=== PATIENT | male | born 1960 | race Caucasian/White ===

== ENCOUNTER 2019-01-15 10:09 | Inpatient (IN) ==
--- NOTE | 2019-01-15 10:50 | Emergency Department Note ---
Disposition Clinical Impression: Atrial fibrillation with rapid ventricular response Right lower lobe pneumonia Qualifiers: Pneumonia type: due to unspecified organism Qualified Code(s): J18.1 - Lobar pneumonia, unspecified organism Disposition: Admitted As Inpatient Condition: Fair Referrals: Edna Antonio, [employer] [Primary Care Provider] - Forms: ED Satisfaction Letter, Work/School Release Time of Disposition: 13:23 General Adult HPI - General Chief complaint: ED General Medical Stated complaint: leg swelling, out of medication Time Seen by Provider: 01/15/19 10:32 Source: patient, family Mode of arrival: private vehicle Limitations: other (Intoxication) Nursing Notes Reviewed: Yes Vital Signs Reviewed: Yes - History of Present Illness HPI Narrative: Patient is an extremely poor historian. His most common answer is "you have to ask my daughter". Patient says he feels short of breath with this been going on for months. He says his legs up and swollen for a few days. He says he has not had his medicines for about 3 days. He has been coughing. When I speak to his daughter turns out he has not had his medicines for months. He is been drinking nonstop for the past several days. She corroborates the swelling of the legs. Patient does seem intoxicated. Really cannot get much of a history or review of systems from him. Pt Subjective Complaint: Swollen legs, short of breath Pain Scale: 0 - Related Data Home Medications Medication Instructions Recorded Confirmed Loratadine [Claritin] 10 mg PO DAILY 01/15/19 01/15/19 Metoprolol XL (24 HR) Succ [Toprol 50 mg PO BID 01/15/19 01/15/19 Xl] Allergies Allergy/AdvReac Type Severity Reaction Status Date / Time No Known Allergies Allergy Verified 01/20/17 14:36 All systems ED: reviewed and negative except as stated. Constitutional: Denies: fever Cardiovascular: Reports: edema. Denies: chest pain Respiratory: Reports: cough, dyspnea Gastrointestinal: Denies: abdominal pain, vomiting, diarrhea Musculoskeletal: Denies: back pain Neurological: Denies: headache Past Medical History - Past Medical History Source: old records reviewed, obtained from family, nursing notes reviewed Medical history: Reports: arthritis, atrial fibrillation, CHF, hypertension Surgical history: Reports: no surgical history Psychiatric history: Reports: no psych history - Social History Smoking Status: Current every day smoker Smokeless Tobacco Status: No Alcohol use: Reports: heavy Drug use: Reports: none Physical Exam - General Limitations: no limitations General appearance: alert, appears intoxicated - Head Head exam: atraumatic, normocephalic, normal inspection - Eye Eye exam: Present: normal appearance, PERRL, EOMI. Absent: scleral icterus, conjunctival injection - ENT ENT exam: normal exam, normal oropharynx, mucous membranes moist, normal external ear exam - Neck Neck exam: Present: normal inspection, full ROM, trachea midline - Chest Chest inspection: Present: normal inspection, symmetric chest wall rise. Absent: tenderness - Respiratory Respiratory exam: Present: normal lung sounds bilaterally, other (Course breath sounds, frequent cough). Absent: respiratory distress - Cardiovascular Cardiovascular exam: Present: tachycardia, irregular rhythm. Absent: systolic murmur, diastolic murmur - Abdominal Exam Abdominal exam: Present: soft, Non-Tender, normal bowel sounds - Extremities Exam Extremities exam: Present: full ROM, pedal edema - Neurological Exam Neurological exam: Present: alert. Absent: motor sensory deficit - Skin Skin exam: Present: warm, dry. Absent: rash Course Course Narrative: Patient presents as an extremely poor historian listing multiple chief complaints of basically uncertain chronicity. His story totally contradicts his daughter story. She seems much more reliable than he. Seems like the patient is not vomiting his medicines for quite some time and since her on drinks all day. In my workup I see that he is in atrial fibrillation with rapid ventricular response at a rate of 162. He has peripheral edema in his lower legs. He coughs and has some coarse breath sounds. This could all be congestive heart failure related to the A. fib or he could have a pneumonia as the trigger. He will need an extensive workup. I am going to start him on Cardizem to start in that heart rate controlled. Neither the patient nor the daughter think he is ever been on a blood thinner. This despite his atrial fibrillation. This might be because he is an alcoholic and they are afraid to fall down a bleed in his head. I am not sure whether I will be starting anticoagulation at this time. I will dig it through old records trying to little bit more insight. - Reevaluation(s) Reevaluation #1: A shows labs look pretty good. He has a pneumonia on his chest x-ray. He has atrial fibrillation with rapid ventricular response but his rate is 97 beats per minute at this time on a 7.5 mg per hour drip of Cardizem that we have not adjusted for 2 hours. He is in no respiratory distress. Pulse ox is 99%. Blood pressure is a bit hypertensive, consistent with his baseline. However he spoke with the hospitalist and he is accepting the patient for admission to the hospital. Time: 13:22 - Consultations Consultation #1: Dr. Haywood, hospitalist - I discussed the case with the hospitalist. We discussed the Cardizem drip and the diagnoses of the pneumonia. He has accepted the patient for admission to the hospital. Time: 13:21 Vital Signs Temperature 98.7 F 01/15/19 10:19 Pulse Rate 161 01/15/19 10:19 Respiratory Rate 24 01/15/19 10:19 Blood Pressure 157/108 01/15/19 10:19 O2 Sat by Pulse Oximetry 95 01/15/19 10:19 Temperature 98.7 F 01/15/19 10:19 Pulse Rate 115 01/15/19 13:12 Respiratory Rate 22 01/15/19 13:12 Blood Pressure 144/109 01/15/19 13:12 O2 Sat by Pulse Oximetry 95 01/15/19 13:12 Oxygen Delivery Oxygen Delivery Nasal Cannula Medical Decision Making - Medical Records Medical records reviewed: Yes I reviewed the patient's medical records. - Lab Data Lab results reviewed: Yes I reviewed the patient's lab results. Result diagrams: 01/15/19 10:52 01/15/19 10:52 Lab Results 01/15/19 01/15/19 01/15/19 Range/Units 10:52 10:52 10:52 WBC 8.8 (4.3-11.1) K/mcL RBC 4.26 (4.19-5.50) M/mcL Hgb 14.4 (12.9-16.9) g/dL Hct 43.0 (37.5-50.1) % MCV 100.9 H (83.0-100.0) fL MCH 33.8 H (28.0-33.3) pg MCHC 33.5 (31.6-35.5) g/dL RDW 13.8 (11.5-14.5) % Plt Count 111 L (140-400) K/mcL MPV 9.7 (9.4-12.4) fL Immature Gran % 0.3 (0-4) % Seg Neutrophils % 73.4 % Lymphocytes % 20.7 % Monocytes % 4.6 % Eosinophils % 0.3 % Basophils % 0.7 % Neutrophils # 6.5 (1.6-8.9) K/mcL Lymphocytes # 1.8 (0.6-4.6) K/mcL Monocytes # 0.4 (0.0-1.3) K/mcL Eosinophils # 0.0 (0.0-0.6) K/mcL Basophils # 0.1 (0.0-0.2) K/mcL PT 12.8 H (9.4-12.1) Seconds INR 1.1 APTT 34.9 (26.0-36.0) Seconds Sodium 135 L (136-145) mEq/L Potassium 5.0 (3.5-5.1) mEq/L Chloride 103 (98-107) mEq/L Carbon Dioxide 20 L (23-29) mEq/L BUN 10 (8-23) mg/dL Creatinine 0.83 (0.70-1.30) mg/dL Est GFR ( Amer) > 60 (> 60) Est GFR (Non-Af Amer) > 60 (> 60) BUN/Creatinine Ratio 12 (6-26) Glucose 93 (70-105) mg/dL Calculated Osmolality 279 L (280-300) Lactic Acid (0.5-2.2) mmol/L Calcium 8.9 (8.6-10.3) mg/dL Total Bilirubin 0.6 (0.3-1.0) mg/dL Direct Bilirubin 0.2 (0.0-0.2) mg/dL Indirect Bilirubin 0.4 (0.0-1.2) mg/dL AST 19 (13-39) Units/L ALT 13 (7-52) Units/L Alkaline Phosphatase 69 (34-104) Units/L Troponin I 0.03 (< 0.04) ng/mL B-Natriuretic Peptide (Less than 100) pg/mL Serum Total Protein 6.8 (6.4-8.9) g/dL Albumin 3.9 (3.5-5.7) g/dL Globulin 2.9 (2.4-3.5) g/dL Albumin/Globulin Ratio 1.3 (1.1-2.2) Lipase 46 (11-82) Units/L Urine Color (Yellow) Urine Clarity (Clear) Urine pH (5.0-8.0) pH Units Ur Specific [place] (1.010-1.025) Urine Protein (Neg-Trace) mg/dL Urine Glucose (UA) (Normal) mg/dL Urine Ketones (Negative) mg/dL Urine Blood (Negative) Urine Nitrite (Negative) Urine Bilirubin (Negative) Urine Urobilinogen (Normal) mg/dL Ur Leukocyte Esterase (Negative) Urine Microscopic RBC (0-3) per hpf Urine Microscopic WBC (0-3) per hpf Ur Squamous Epith Cells (None-Few) per lpf Urine Bacteria (None-Few) per hpf Urine Mucus (Few) Ur Culture Indicated? (NO) Urine Opiates Screen (Twtrcu=319) ng/mL Ur Oxycodone Screen (Cutoff= 100) ng/mL Ur Barbiturates Screen (Edkegs=660) ng/mL Ur Phencyclidine Scrn (Cutoff=25) ng/mL Ur Amphetamines Screen (Ypxkhs=5161) ng/mL U Benzodiazepines Scrn (Mlvtmx=232) ng/mL Urine Cocaine Screen (Cutoff= 300) ng/mL U Marijuana (THC) Screen (Cutoff = 50) ng/mL Ur Drug Screen Interp Ethyl Alcohol 101 H (Less than 10) mg/dL 01/15/19 01/15/19 01/15/19 Range/Units 10:52 10:52 11:01 WBC (4.3-11.1) K/mcL RBC (4.19-5.50) M/mcL Hgb (12.9-16.9) g/dL Hct (37.5-50.1) % MCV (83.0-100.0) fL MCH (28.0-33.3) pg MCHC (31.6-35.5) g/dL RDW (11.5-14.5) % Plt Count (140-400) K/mcL MPV (9.4-12.4) fL Immature Gran % (0-4) % Seg Neutrophils % % Lymphocytes % % Monocytes % % Eosinophils % % Basophils % % Neutrophils # (1.6-8.9) K/mcL Lymphocytes # (0.6-4.6) K/mcL Monocytes # (0.0-1.3) K/mcL Eosinophils # (0.0-0.6) K/mcL Basophils # (0.0-0.2) K/mcL PT (9.4-12.1) Seconds INR APTT (26.0-36.0) Seconds Sodium (136-145) mEq/L Potassium (3.5-5.1) mEq/L Chloride (98-107) mEq/L Carbon Dioxide (23-29) mEq/L BUN (8-23) mg/dL Creatinine (0.70-1.30) mg/dL Est GFR ( Amer) (> 60) Est GFR (Non-Af Amer) (> 60) BUN/Creatinine Ratio (6-26) Glucose (70-105) mg/dL Calculated Osmolality (280-300) Lactic Acid 1.5 (0.5-2.2) mmol/L Calcium (8.6-10.3) mg/dL Total Bilirubin (0.3-1.0) mg/dL Direct Bilirubin (0.0-0.2) mg/dL Indirect Bilirubin (0.0-1.2) mg/dL AST (13-39) Units/L ALT (7-52) Units/L Alkaline Phosphatase (34-104) Units/L Troponin I (< 0.04) ng/mL B-Natriuretic Peptide 459 H (Less than 100) pg/mL Serum Total Protein (6.4-8.9) g/dL Albumin (3.5-5.7) g/dL Globulin (2.4-3.5) g/dL Albumin/Globulin Ratio (1.1-2.2) Lipase (11-82) Units/L Urine Color Yellow (Yellow) Urine Clarity Turbid A (Clear) Urine pH 5.0 (5.0-8.0) pH Units Ur Specific [place] 1.015 (1.010-1.025) Urine Protein 100 H (Neg-Trace) mg/dL Urine Glucose (UA) Normal (Normal) mg/dL Urine Ketones Negative (Negative) mg/dL Urine Blood Large H (Negative) Urine Nitrite Positive A (Negative) Urine Bilirubin Negative (Negative) Urine Urobilinogen Normal (Normal) mg/dL Ur Leukocyte Esterase Large H (Negative) Urine Microscopic RBC 3-5 H (0-3) per hpf Urine Microscopic WBC TNTC H (0-3) per hpf Ur Squamous Epith Cells Few (None-Few) per lpf Urine Bacteria Moderate H (None-Few) per hpf Urine Mucus Few (Few) Ur Culture Indicated? YES A (NO) Urine Opiates Screen (Uowraw=792) ng/mL Ur Oxycodone Screen (Cutoff= 100) ng/mL Ur Barbiturates Screen (Faixfc=201) ng/mL Ur Phencyclidine Scrn (Cutoff=25) ng/mL Ur Amphetamines Screen (Smunhs=0087) ng/mL U Benzodiazepines Scrn (Fxbtsk=593) ng/mL Urine Cocaine Screen (Cutoff= 300) ng/mL U Marijuana (THC) Screen (Cutoff = 50) ng/mL Ur Drug Screen Interp Ethyl Alcohol (Less than 10) mg/dL 01/15/19 Range/Units 11:01 WBC (4.3-11.1) K/mcL RBC (4.19-5.50) M/mcL Hgb (12.9-16.9) g/dL Hct (37.5-50.1) % MCV (83.0-100.0) fL MCH (28.0-33.3) pg MCHC (31.6-35.5) g/dL RDW (11.5-14.5) % Plt Count (140-400) K/mcL MPV (9.4-12.4) fL Immature Gran % (0-4) % Seg Neutrophils % % Lymphocytes % % Monocytes % % Eosinophils % % Basophils % % Neutrophils # (1.6-8.9) K/mcL Lymphocytes # (0.6-4.6) K/mcL Monocytes # (0.0-1.3) K/mcL Eosinophils # (0.0-0.6) K/mcL Basophils # (0.0-0.2) K/mcL PT (9.4-12.1) Seconds INR APTT (26.0-36.0) Seconds Sodium (136-145) mEq/L Potassium (3.5-5.1) mEq/L Chloride (98-107) mEq/L Carbon Dioxide (23-29) mEq/L BUN (8-23) mg/dL Creatinine (0.70-1.30) mg/dL Est GFR ( Amer) (> 60) Est GFR (Non-Af Amer) (> 60) BUN/Creatinine Ratio (6-26) Glucose (70-105) mg/dL Calculated Osmolality (280-300) Lactic Acid (0.5-2.2) mmol/L Calcium (8.6-10.3) mg/dL Total Bilirubin (0.3-1.0) mg/dL Direct Bilirubin (0.0-0.2) mg/dL Indirect Bilirubin (0.0-1.2) mg/dL AST (13-39) Units/L ALT (7-52) Units/L Alkaline Phosphatase (34-104) Units/L Troponin I (< 0.04) ng/mL B-Natriuretic Peptide (Less than 100) pg/mL Serum Total Protein (6.4-8.9) g/dL Albumin (3.5-5.7) g/dL Globulin (2.4-3.5) g/dL Albumin/Globulin Ratio (1.1-2.2) Lipase (11-82) Units/L Urine Color (Yellow) Urine Clarity (Clear) Urine pH (5.0-8.0) pH Units Ur Specific [place] (1.010-1.025) Urine Protein (Neg-Trace) mg/dL Urine Glucose (UA) (Normal) mg/dL Urine Ketones (Negative) mg/dL Urine Blood (Negative) Urine Nitrite (Negative) Urine Bilirubin (Negative) Urine Urobilinogen (Normal) mg/dL Ur Leukocyte Esterase (Negative) Urine Microscopic RBC (0-3) per hpf Urine Microscopic WBC (0-3) per hpf Ur Squamous Epith Cells (None-Few) per lpf Urine Bacteria (None-Few) per hpf Urine Mucus (Few) Ur Culture Indicated? (NO) Urine Opiates Screen Negative (Zclmzb=139) ng/mL Ur Oxycodone Screen Negative (Cutoff= 100) ng/mL Ur Barbiturates Screen Negative (Anlkqe=451) ng/mL Ur Phencyclidine Scrn Negative (Cutoff=25) ng/mL Ur Amphetamines Screen Negative (Mhlxaf=4051) ng/mL U Benzodiazepines Scrn Negative (Sgbjdn=924) ng/mL Urine Cocaine Screen Negative (Cutoff= 300) ng/mL U Marijuana (THC) Screen Negative (Cutoff = 50) ng/mL Ur Drug Screen Interp See Below Ethyl Alcohol (Less than 10) mg/dL - Radiology Data Radiology results reviewed: Yes I reviewed the patient's radiology results. - EKG Data EKG #1 EKG attestation: Yes I reviewed and interpreted this EKG. EKG results narrative: Twelve-lead EKG performed at 10:17 AM. Ordered, reviewed and interpreted by ED physician shows atrial fibrillation at a rate of 158. Right axis deviation. Reasonable R wave progression across the precordium. No obvious acute ischemic changes.
[2019-01-15] MEDS ORDERED: 0.9 % Sodium Chloride 1,000 ML IVC ONE (11:02)
[2019-01-15 11:04] LABS: Basophils # 0.1 K/mcL (0.0-0.2); Basophils % 0.7 %; Eosinophils % 0.3 %; Hemoglobin 14.4 g/dL (12.9-16.9); Immature Granulocytes % 0.3 % (0-4); Lymphocytes # 1.8 K/mcL (0.6-4.6); Lymphocytes % 20.7 %; Mean Corpuscular HGB Conc 33.5 g/dL (31.6-35.5); Mean Corpuscular Hemoglobin 33.8 pg (28.0-33.3); Mean Corpuscular Volume 100.9 fL (83.0-100.0); Mean Platelet Volume 9.7 fL (9.4-12.4); Monocytes # 0.4 K/mcL (0.0-1.3); Monocytes % 4.6 %; Neutrophils # 6.5 K/mcL (1.6-8.9); Platelet Count 111 K/mcL (140-400); Red Blood Count 4.26 M/mcL (4.19-5.50); Red Cell Distribution Width 13.8 % (11.5-14.5); Segmented Neutrophils % 73.4 %
[2019-01-15] MEDS ORDERED: Azithromycin 500 MG in D5% in Water 250 ML IVPB ONE (11:04)
[2019-01-15 11:17] LABS: INR 1.1; Prothrombin Time 12.8 Seconds (9.4-12.1)
[2019-01-15 11:18] LABS: Bilirubin,Urine Negative (Negative); Blood,Urine Large (Negative); Clarity,Urine Turbid (Clear); Color,Urine Yellow (Yellow); Glucose,Urine (UA) Normal (Normal); Ketones,Urine Negative (Negative); Leukocyte Esterase,Urine Large (Negative); Nitrite,Urine Positive (Negative); Protein,Urine 100 mg/dL (Neg-Trace); Specific Gravity,Urine 1.015 (1.010-1.025); Urobilinogen,Urine Normal (Normal)
[2019-01-15 11:19] LABS: Amphetamine Screen,Urine Negative ng/mL (Cutoff=1000); Barbiturate Screen,Urine Negative ng/mL (Cutoff=200); Benzodiazepines Screen,Urine Negative ng/mL (Cutoff=200); Cannabinoid Screen,Urine Negative ng/mL (Cutoff = 50); Cocaine Screen,Urine Negative ng/mL (Cutoff= 300); Opiate Screen,Urine Negative ng/mL (Cutoff=300); Phencyclidine Screen,Urine Negative ng/mL (Cutoff=25)
[2019-01-15 11:20] LABS: Activated Partial Thrombo Time 34.9 Seconds (26.0-36.0)
[2019-01-15 11:27] LABS: Troponin I 0.03 ng/mL (< 0.04)
[2019-01-15 11:30] LABS: Squamous Epithelial Cell,Urine Few per lpf (None-Few); WBC,Urine TNTC per hpf (0-3)
[2019-01-15 11:31] LABS: Bacteria,Urine Moderate per hpf (None-Few); Mucus,Urine Few (Few)
[2019-01-15 12:06] LABS: Alanine Aminotransferase 13 Units/L (7-52); Albumin 3.9 g/dL (3.5-5.7); Albumin/Globulin Ratio 1.3 (1.1-2.2); Alkaline Phosphatase 69 Units/L (34-104); Aspartate Amino Transferase 19 Units/L (13-39); BUN/Creatinine Ratio 12 (6-26); Bilirubin,Direct 0.2 mg/dL (0.0-0.2); Bilirubin,Indirect 0.4 mg/dL (0.0-1.2); Bilirubin,Total 0.6 mg/dL (0.3-1.0); Blood Urea Nitrogen 10 mg/dL (8-23); Calcium 8.9 mg/dL (8.6-10.3); Carbon Dioxide 20 mEq/L (23-29); Chloride 103 mEq/L (98-107); Ethanol 101 mg/dL (Less than 10); Globulin 2.9 g/dL (2.4-3.5); Glucose 93 mg/dL (70-105); Lipase 46 Units/L (11-82); Osmolality,Calculated 279 (280-300); Sodium 135 mEq/L (136-145); Total Protein 6.8 g/dL (6.4-8.9); eGFR For Non-African Americans > 60 (> 60)
[2019-01-15] MEDS ORDERED: *HR* Rivaroxaban 10 MG TABLET PO STA ×2 (13:28→14:05)
[2019-01-15] MEDS ORDERED: 0.9 % Sodium Chloride 1,000 ML IVC SCH (14:05)
[2019-01-15] MEDS ORDERED: Naloxone 0.4 MG/ML INJ IVP PRN (14:05)
[2019-01-15] MEDS ORDERED: *HR* LORazepam 2 MG/ML VIAL IVP STA ×2 (14:10→14:16)
[2019-01-15] MEDS: Azithromycin 500 MG in D5% in Water 250 ML IVPB SCH (15:00)
[2019-01-15] MEDS ORDERED: Ipratropium/Albuterol Neb 3 ML IH SCH (16:00)
[2019-01-15] MEDS ORDERED: *HR* Digoxin 0.5 MG/2 ML AMPUL IVP ONE (16:26)
--- NOTE | 2019-01-15 16:32 | Internal Med History&Physical ---
Date of Encounter: 01/15/19 Time of Encounter: 16:05 Assessment and Plan (1) Atrial fibrillation with rapid ventricular response Current visit: Yes Status: Acute He has been started on Cardizem drip in emergency room. He will receive IV Lanoxin and metoprolol. Further workup/treatment will be done as needed. (2) Congestive heart failure Current visit: No Status: Chronic BN peptide has been elevated on all labs since April 2016. Echocardiogram 01/22/2017 showed LVEF 40% with indeterminate diastolic function due to atrial fibrillation. There was [id number] tricuspid regurgitation. The estimated RVSP was slightly elevated at 41 mmHg. The interventricular septum and posterior wall thickness measurements were normal at 1.10 each. There was LAE at 4.80 cm. He will be given IV Lasix, IV metoprolol, and IV Lanoxin. Qualifiers: Qualified Code(s): I50.43 - Acute on chronic combined systolic (congestive) and diastolic (congestive) heart failure (3) Right lower lobe pneumonia Current visit: Yes Status: Acute IV Rocephin and Zithromax were started in emergency room. I will change from Rocephin to Zosyn to better cover for possible aspiration due to binge drinking Qualifiers: Pneumonia type: due to unspecified organism Qualified Code(s): J18.1 - Lobar pneumonia, unspecified organism (4) UTI (urinary tract infection) Current visit: Yes Status: Acute Rocephin and Zithromax were given inemergency room. Change to Zosyn from Rocephin. Urine culture has been sent. Add lactobacillus. Qualifiers: Urinary tract infection type: site unspecified Hematuria presence: with hematuria Qualified Code(s): N39.0 - Urinary tract infection, site not specified; R31.9 - Hematuria, unspecified (5) Alcohol abuse Current visit: No Status: Acute IV thiamine has been ordered. Ativan will be given as needed to lessen agitation on withdrawal. (6) COPD (chronic obstructive pulmonary disease) Current visit: No Status: Chronic Presumed. Pneumonia treatment as per above. Check room air oximetry prior to discharge home. Qualifiers: COPD type: unspecified COPD Qualified Code(s): J44.9 - Chronic obstructive pulmonary disease, unspecified (7) Low vitamin B12 level Current visit: Yes Status: Acute B12 level was 172 on 10/08/2017. Recheck in a.. Internal Medicine - H&P: HPI Chief complaint: Dyspnea Admitted From: Emergency Dept Plans for Post Hospital Care: Home History of present illness: Mr. Ramsey is a 58 year old male who was brought to emergency room for complaints of dyspnea. He is a poor historian because of intoxication and administration of Ativan. The ER note reports he has not taken his medications for several months and has been binge drinking for several days. He was evaluated in emergency room and was found to have right lower lobe pneumonia and atrial fibrillation with RVR. He was admitted to [facility] floor for ongoing care needs. Past Med Surg Social Fam HX - Past Medical History Medical history: arthritis, atrial fibrillation, CHF, hypertension Psychiatric history: no psych history - Past Surgical History Surgical History: no surgical history Additional surgical history: CARDIAC CATH 2009 - Social History Smoking Status: Current every day smoker Smokeless Tobacco Status: No Alcohol use: heavy Drug use: none - Family History Mother Living Status: Father Living Status: Internal Medicine - H&P: Meds Loratadine [Claritin] 10 mg PO DAILY 01/15/19 [History] Metoprolol XL (24 HR) Succ [Toprol Xl] 50 mg PO BID 01/15/19 [History] Allergy/AdvReac Type Severity Reaction Status Date / Time No Known Allergies Allergy Verified 01/20/17 14:36 All Systems PM: A 10-system review of systems was performed and is negative for pertinent findings except as documented above in the HPI. Review of systems: Unobtainable from the patient due to lethargy. - Constitutional Vitals: Temp Pulse Resp BP Pulse Ox 98.2 F 100 18 151/99 96 01/15/19 15:46 01/15/19 15:46 01/15/19 15:49 01/15/19 15:46 01/15/19 15:49 Exam: Gen.: He is a well-developed well-nourished male lying in bed who appears in no acute distress. HEENT: Head is atraumatic and normocephalic. Eyes: EOMI. There is no scleral icterus. Mouth: Mucosa is moist. Neck: Supple and nontender. There is no thyromegaly or adenopathy noted. Heart: Irregularly irregular with rate approximately 116/m. No murmurs or gallops are heard. Lungs: No wheezes or crackles are heard. Abdomen: Slightly distended and tympanitic to percussion. Nontender to palpation. Extremities: He has 2+ edema of the dorsum of feet and lower legs bilaterally. Dorsalis pedis and posterior tibial pulses are not palpable. Neurologic: Mental status: He arouses to questioning and answers a few questions with short answers. Cranial nerves: There is slight flattening of the left nasolabial fold compared to right. Tongue protrudes midline. EOMI. Forehead wrinkles bilaterally. Motor: There is no pronator drift. Cerebellar: Finger to nose is intact bilaterally. Skin: Warm and dry Internal Med - H&P Results - Labs CBC & Chem 7: 01/15/19 10:52 01/15/19 10:52 Labs: Short CBC 01/15/19 Range/Units 10:52 WBC 8.8 (4.3-11.1) K/mcL Hgb 14.4 (12.9-16.9) g/dL Hct 43.0 (37.5-50.1) % Plt Count 111 L (140-400) K/mcL Neutrophils # 6.5 (1.6-8.9) K/mcL BMP 01/15/19 10:52 Sodium 135 L Potassium 5.0 Chloride 103 Carbon Dioxide 20 L BUN 10 Creatinine 0.83 Glucose 93 Calcium 8.9 Cardiac Enzymes 01/15/19 Range/Units 10:52 Troponin I 0.03 (< 0.04) ng/mL Liver Function 01/15/19 Range/Units 10:52 Total Bilirubin 0.6 (0.3-1.0) mg/dL Direct Bilirubin 0.2 (0.0-0.2) mg/dL AST 19 (13-39) Units/L ALT 13 (7-52) Units/L Alkaline Phosphatase 69 (34-104) Units/L Albumin 3.9 (3.5-5.7) g/dL Urine 01/15/19 Range/Units 11:01 Urine Color Yellow (Yellow) Urine Clarity Turbid A (Clear) Urine pH 5.0 (5.0-8.0) pH Units Ur Specific [place] 1.015 (1.010-1.025) Urine Protein 100 H (Neg-Trace) mg/dL Urine Glucose (UA) Normal (Normal) mg/dL - Impressions ITS Impressions Chest X-Ray 01/15/19 10:33 IMPRESSION: Right lower lobe infiltrate/pneumonia. D/ / 01/15/2019 11:18:57 Willie Lezama MD / patricia Interpreting Provider: Willie Lezama MD
[2019-01-15] MEDS: *HR* Metoprolol 5 MG/5 ML VIAL IVP SCH ×3 (17:37→23:37)
[2019-01-15] MEDS: Furosemide 40 MG/4 ML VIAL IVP SCH ×2 (17:56→21:00)
[2019-01-15] MEDS: Thiamine (B-1) 100 MG in D5% in Water 50 ML IVPB SCH (18:25)
[2019-01-15] MEDS: Lactobacillus 1 EACH CAP.SPRINK PO SCH (21:31)
[2019-01-15] MEDS: Piperacillin/Tazobactam 3.375 GM in 0.9 % Sodium Chloride Mini Bag 100 ML IVPB SCH (23:37)
[2019-01-16 05:29] LABS: Basophils % 0.6 %; Eosinophils % 0.2 %; Hematocrit 40.5 % (37.5-50.1); Hemoglobin 13.5 g/dL (12.9-16.9); Immature Granulocytes % 0.5 % (0-4); Lymphocytes # 1.3 K/mcL (0.6-4.6); Mean Corpuscular HGB Conc 33.3 g/dL (31.6-35.5); Mean Corpuscular Hemoglobin 33.3 pg (28.0-33.3); Mean Platelet Volume 10.1 fL (9.4-12.4); Monocytes # 0.5 K/mcL (0.0-1.3); Monocytes % 7.7 %; Neutrophils # 4.4 K/mcL (1.6-8.9); Red Blood Count 4.05 M/mcL (4.19-5.50); Red Cell Distribution Width 13.5 % (11.5-14.5)
[2019-01-16 05:35] LABS: Platelet Count 98 K/mcL (140-400)
[2019-01-16] MEDS: *HR* Metoprolol 5 MG/5 ML VIAL IVP SCH (05:46)
[2019-01-16 05:58] LABS: BUN/Creatinine Ratio 15 (6-26); Blood Urea Nitrogen 13 mg/dL (8-23); Calcium 8.6 mg/dL (8.6-10.3); Carbon Dioxide 26 mEq/L (23-29); Chloride 99 mEq/L (98-107); Glucose 95 mg/dL (70-105); Magnesium 1.5 mg/dL (1.6-2.6); Osmolality,Calculated 278 (280-300); Potassium 4.2 mEq/L (3.5-5.1); Sodium 134 mEq/L (136-145); eGFR For Non-African Americans > 60 (> 60)
[2019-01-16 06:08] LABS: Thyroid Stimulating Hormone 10.017 mcIU/mL (0.340-5.600)
[2019-01-16] MEDS: Lactobacillus 1 EACH CAP.SPRINK PO SCH ×2 (07:47→20:15)
[2019-01-16] MEDS: Furosemide 40 MG/4 ML VIAL IVP SCH (07:48)
[2019-01-16] MEDS: Azithromycin 500 MG in D5% in Water 250 ML IVPB SCH (07:48)
[2019-01-16] MEDS: Piperacillin/Tazobactam 3.375 GM in 0.9 % Sodium Chloride Mini Bag 100 ML IVPB SCH ×2 (07:49→18:00)
[2019-01-16] MEDS: *HR* LORazepam 2 MG/ML VIAL IVP PRN ×3 (07:49→18:41)
[2019-01-16] MEDS ORDERED: cefTRIAXone 1,000 MG in Water for inj. (sterile) 20 ML 10 ML IVP SCH (09:00)
[2019-01-16] MEDS ORDERED: cefTRIAXone 1,000 MG in 0.9 % Sodium Chloride Mini Bag 100 ML IVPB SCH (09:00)
[2019-01-16] MEDS ORDERED: *HR* Digoxin 0.5 MG/2 ML AMPUL IVP ONE (10:14)
--- NOTE | 2019-01-16 10:29 | Internal Med Progress Note ---
Date of Encounter: 01/16/19 Time of Encounter: 10:15 - Assessment and plan (1) Atrial fibrillation with rapid ventricular response Current Visit: Yes Status: Acute Assessment and plan: January 16. Continue Lanoxin and metoprolol. Add verapamil for heart rate and blood pressure. (2) Congestive heart failure Current Visit: No Status: Chronic Assessment and plan: January 16. Continue Lanoxin, Lasix and metoprolol Qualifiers: Qualified Code(s): I50.43 - Acute on chronic combined systolic (congestive) and diastolic (congestive) heart failure (3) Right lower lobe pneumonia Current Visit: Yes Status: Acute Assessment and plan: January 16. Continue IV Zosyn and Zithromax with lactobacillus. Chest CT will be ordered to further evaluate. Qualifiers: Pneumonia type: due to unspecified organism Qualified Code(s): J18.1 - Lobar pneumonia, unspecified organism (4) UTI (urinary tract infection) Current Visit: Yes Status: Acute Assessment and plan: January 16. Urine culture report pending. Continue Zosyn with lactobacillus. Qualifiers: Urinary tract infection type: site unspecified Hematuria presence: with hematuria Qualified Code(s): N39.0 - Urinary tract infection, site not specified; R31.9 - Hematuria, unspecified (5) Alcohol abuse Current Visit: No Status: Acute Assessment and plan: January 16. Continue thiamine. Xanax will be given scheduled to lessen agitation. Ativan will be given as needed. (6) COPD (chronic obstructive pulmonary disease) Current Visit: No Status: Chronic Assessment and plan: January 16. Presumed. Continue pneumonia treatment as per above. Chest CT will be done to further evaluate. Qualifiers: COPD type: unspecified COPD Qualified Code(s): J44.9 - Chronic obstructive pulmonary disease, unspecified (7) Low vitamin B12 level Current Visit: Yes Status: Acute Assessment and plan: January 16. B12 level pending. (8) Hypomagnesemia Current Visit: Yes Status: Acute Assessment and plan: January 16. Magnesium level returned low at 1.5. Supplemental magnesium oxide will be ordered. (9) Elevated TSH Current Visit: Yes Status: Acute Assessment and plan: January 16. TSH returned elevated at 10.017. Start low-dose Synthroid in a.m. - Subjective Interval history: January 16. He has no new complaints. He admits he is dyspneic but denies significant pain. - Constitutional Vitals: Temp Pulse Resp BP Pulse Ox 97.8 F 142 18 165/112 92 01/16/19 07:19 01/16/19 07:19 01/16/19 07:19 01/16/19 07:01/16/19 07:19 Exam: He is sitting on the side of the bed and appears slightly agitated. He is more awake and alert and states he wishes to be discharged home. Lungs show no wheezes or crackles. Extremities show minimally changed 1-2+ pitting edema. Telemetry shows AF with RVR. I reviewed his medications and lab results. Internal Medicine: Result - Labs CBC & Chem 7: 01/16/19 05:18 01/16/19 05:18 Labs: Short CBC 01/15/19 01/16/19 Range/Units 10:52 05:18 WBC 8.8 6.3 (4.3-11.1) K/mcL Hgb 14.4 13.5 (12.9-16.9) g/dL Hct 43.0 40.5 (37.5-50.1) % Plt Count 111 L 98 L (140-400) K/mcL Neutrophils # 6.5 4.4 (1.6-8.9) K/mcL BMP 01/15/19 01/16/19 10:52 05:18 Sodium 135 L 134 L Potassium 5.0 4.2 Chloride 103 99 Carbon Dioxide 20 L 26 BUN 10 13 Creatinine 0.83 0.84 Glucose 93 95 Calcium 8.9 8.6 Cardiac Enzymes 01/15/19 01/15/19 01/15/19 Range/Units 10:52 17:20 22:58 Troponin I 0.03 0.03 0.03 (< 0.04) ng/mL 01/16/19 Range/Units 05:18 Troponin I 0.03 (< 0.04) ng/mL Liver Function 01/15/19 Range/Units 10:52 Total Bilirubin 0.6 (0.3-1.0) mg/dL Direct Bilirubin 0.2 (0.0-0.2) mg/dL AST 19 (13-39) Units/L ALT 13 (7-52) Units/L Alkaline Phosphatase 69 (34-104) Units/L Albumin 3.9 (3.5-5.7) g/dL Urine 01/15/19 Range/Units 11:01 Urine Color Yellow (Yellow) Urine Clarity Turbid A (Clear) Urine pH 5.0 (5.0-8.0) pH Units Ur Specific [place] 1.015 (1.010-1.025) Urine Protein 100 H (Neg-Trace) mg/dL Urine Glucose (UA) Normal (Normal) mg/dL - ABG Interpretation ABG results: PT/INR, D-dimer PT 12.8 Seconds (9.4-12.1) H 01/15/19 10:52 - Impressions Impressions Chest X-Ray 01/15/19 10:33 IMPRESSION: Right lower lobe infiltrate/pneumonia. D/ / 01/15/2019 11:18:57 Willie Lezama MD / patricia Interpreting Provider: Willie Lezama MD Consult Discharge Plan - Plan Referrals: Edna Antonio, [employer] [Primary Care Provider] - 1 week
[2019-01-16] MEDS: ALPRAZolam 0.25 MG TABLET PO SCH ×2 (11:12→20:15)
[2019-01-16] MEDS: Magnesium Oxide 400 MG TABLET PO SCH ×2 (11:13→20:15)
[2019-01-16] MEDS ORDERED: Nicotine 21 MG PATCH.TD24 TD SCH (14:45)
[2019-01-16] MEDS ORDERED: *HR* LORazepam 2 MG/ML VIAL IVP ONE (14:45)
[2019-01-16] MEDS ORDERED: *HR* Rivaroxaban 10 MG TABLET PO SCH (17:00)
[2019-01-16] MEDS: Thiamine (B-1) 100 MG in D5% in Water 50 ML IVPB SCH (18:00)
--- NOTE | 2019-01-16 18:15 | Discharge Summary ---
Orders not resulted at time of discharge: Pending orders 01/15/19 10:33 EKG [ECG 12 lead ECG] [ECG] Stat 01/15/19 10:54 Culture,Blood [BC] Stat 01/15/19 11:01 Culture,Urine [RM] Stat 01/16/19 05:18 Zinc AM 0400 01/17/19 04:00 B-Type Natriuretic Peptide AM 0400 Basic Metabolic Panel AM 0400 Complete Blood Count [HEME] AM 0400 Digoxin AM 0400 Date of Encounter: 01/16/19 Time of Encounter: 18:05 - Discharge Diagnosis (1) Atrial fibrillation with rapid ventricular response Priority: Primary Status: Acute (2) Congestive heart failure Priority: Secondary Status: Chronic Qualifiers: Qualified Code(s): I50.43 - Acute on chronic combined systolic (congestive) and diastolic (congestive) heart failure (3) Right lower lobe pneumonia Priority: Secondary Status: Acute Qualifiers: Pneumonia type: due to unspecified organism Qualified Code(s): J18.1 - Lobar pneumonia, unspecified organism (4) UTI (urinary tract infection) Priority: Secondary Status: Acute Qualifiers: Urinary tract infection type: site unspecified Hematuria presence: with hematuria Qualified Code(s): N39.0 - Urinary tract infection, site not specified; R31.9 - Hematuria, unspecified (5) Alcohol abuse Priority: Secondary Status: Acute (6) COPD (chronic obstructive pulmonary disease) Priority: Secondary Status: Chronic Qualifiers: COPD type: unspecified COPD Qualified Code(s): J44.9 - Chronic obstructive pulmonary disease, unspecified (7) Low vitamin B12 level Priority: Secondary Status: Acute (8) Hypomagnesemia Priority: Secondary Status: Acute (9) Elevated TSH Priority: Secondary Status: Acute Hospital course: Mr. Ramsey is a 58 year old male who was brought to emergency room for complaints of dyspnea. He is a poor historian because of intoxication and administration of Ativan. The ER note reports he has not taken his medications for several months and has been binge drinking for several days. He was evaluated in emergency room and was found to have right lower lobe pneumonia and atrial fibrillation with RVR. He was admitted to [facility] floor for ongoing care needs. Initial orders were written by the emergency room physician. I saw him on January 15 and performed the history and physical. He was initially started on Cardizem drip in emergency room. I gave him IV Lanoxin and metoprolol and the Cardizem drip was discontinued. His heart rate was still showing significant fluctuation when I saw him morning of January 16. He was given additional metoprolol and Lanoxin. A single dose of verapamil was also given. His heart rate returned to satisfactory range. Blood pressure also improved from elevated range to normal range. IV Lasix was given for heart failure. He also received IV digoxin and metoprolol as per above. BN peptide aram to 1526 on January 16. He can have echocardiogram done after transfer to [facility]. He was started empirically on Zosyn and Zithromax for pneumonia and UTI. Urine and blood cultures are pending at time of transfer. CT of chest abdomen and pelvis was ordered to further evaluate. There was evidence of bilateral upper lobe patchy groundglass and minimal consolidation of the partially collapsed right middle lobe. There was evidence of cystitis. No evidence of malignancy was seen. Blood alcohol level in emergency room was 101 MG/DL. He could not give reliable history when I saw him shortly after arrival to [facility] floor on January 15. He was still slightly lethargic and somewhat agitated when I saw him the morning of January 16. Scheduled Xanax and prn IV Ativan was ordered to lessen agitation and alcohol withdrawal symptoms. His CIWA score the afternoon of January 16 was 32. Per policy it was necessary he be transferred to more intensive care setting. I spoke with the hospitalist at [facility] the afternoon of January 16 and he was accepted in transfer. - Time Spent with Patient Total time spent providing and/or coordinating discharge services: - Discharge Medications Prescriptions: No Action Loratadine [Claritin] 10 mg PO DAILY Metoprolol XL (24 HR) Succ [Toprol Xl] 50 mg PO BID Home Medications: Loratadine [Claritin] 10 mg PO DAILY 01/15/19 [History] Metoprolol XL (24 HR) Succ [Toprol Xl] 50 mg PO BID 01/15/19 [History] Allergies/Adverse Reactions: Allergy/AdvReac Type Severity Reaction Status Date / Time No Known Allergies Allergy Verified 01/20/17 14:36 Date of admission: 01/15/19 16:29 Primary care physician: Edna Antonio CNP - Constitutional Vitals: Temp Pulse Resp BP Pulse Ox 97.0 F L 79 26 104/68 95 01/16/19 14:44 01/16/19 14:44 01/16/19 14:44 01/16/19 14:44 01/16/19 14:44 - Patient Status Disposition: Transfer Other Condition: Fair - Discharge Instructions
[2019-01-16 18:32] VITALS: BP 150/100
[2019-01-16] MEDS ORDERED: Furosemide 40 MG/4 ML VIAL IVP SCH (21:00)
[2019-01-17] MEDS ORDERED: Levothyroxine 25 MCG TABLET PO SCH (06:30)
[2019-01-17] MEDS ORDERED: *HR* Digoxin 0.25 MG TABLET PO SCH (09:00)
--- NOTE | 2019-01-18 15:43 | Electrocardiograph Report ---
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
== END 2019-01-16 21:18 | disposition other institution (70) | DRG 193 ==
LOC: EMEROOPIK 10:09 → INPPIK 10:09
PROVIDERS: ADMIT Internal Medicine; ATTEND Internal Medicine